=== PATIENT | male | born 1945 | race Caucasian/White ===

== ENCOUNTER 2020-01-17 00:29 | Inpatient (IN) | payer MEDICARE, BC ==
[~2020-01-17] VITALS: Ht 172.7 cm; Wt 97.5 kg
[2020-01-17] MEDS ORDERED: ACETAMINOPHEN ES 500 MG TABLET ONE (00:59)
[2020-01-17] MEDS ORDERED: ACETAMINOPHEN ES 500 MG TABLET PO ONE (01:00)
--- NOTE | 2020-01-17 01:11 | NUR ---
XRAY AT BEDSIDE
--- NOTE | 2020-01-17 01:11 | NUR ---
PATIENT CAME TO ER BED 5 C/O NON PRODUCTIVE COUGH FOR 8 XDAYS. PATIENT HAS A TEMPERATURE OF 100.3 UPON ASSESSMENT. AAOX4. NO SOB. BREATHING EVENLY AND UNLABORED ON 3L N/C. CONNECTED TO MONITOR.
[2020-01-17 01:18] LABS: BASOPHILS % (AUTO) 0.3 % (0.0-2.0); EOSINOPHILS % (AUTO) 0.1 % (0.0-6.0); HEMATOCRIT 30 % (39-51); HEMOGLOBIN 9.7 g/dL (13.5-17.5); LYMPHOCYTES # (AUTO) 0.4 /CMM (0.8-4.8); LYMPHOCYTES % (AUTO) 6.3 % (20.0-44.0); MEAN CORPUSCULAR HGB CONC 33 g/dl (31.0-36.0); MEAN CORPUSCULAR VOLUME 95 fL (80-96); MONOCYTES # (AUTO) 0.4 /CMM (0.1-1.30); MONOCYTES % (AUTO) 6.8 % (2.0-12.0); NEUTROPHILS # (AUTO) 5.7 /CMM (1.8-8.9); NEUTROPHILS % (AUTO) 86.5 % (43.0-81.0); PLATELET COUNT (AUTO) 92 /CMM (150-450); WHITE BLOOD COUNT (AUTO) 6.5 K/uL (4.3-11.0)
[2020-01-17 01:24] LABS: CALCIUM, SERUM 7.7 mg/dL (8.5-10.1); CARBON DIOXIDE 26 mmol/L (21-32); CHLORIDE 85 mmol/L (98-107); GLUCOSE 147 mg/dL (74-106); POTASSIUM 4.7 mmol/L (3.5-5.1); SODIUM SERUM 128 mmol/L (136-145); UREA NITROGEN, BLOOD 75 mg/dL (7-18)
[2020-01-17] MEDS ORDERED: LOSA50TA39 PO (01:26)
[2020-01-17] MEDS ORDERED: INSU100V7 SQ (01:26)
[2020-01-17] MEDS ORDERED: SEVE800T8 PO (01:26)
[2020-01-17] MEDS ORDERED: OMEP40CA13 PO (01:26)
[2020-01-17] MEDS ORDERED: NEBI2.5T5 PO (01:26)
[2020-01-17] MEDS ORDERED: TAMS-12 PO (01:26)
[2020-01-17] MEDS ORDERED: ASPI-1169 PO (01:26)
[2020-01-17] MEDS ORDERED: NIFE-35 PO (01:26)
[2020-01-17] MEDS ORDERED: ALLO100T PO (01:26)
[2020-01-17] MEDS ORDERED: FINA5TAB11 PO (01:26)
[2020-01-17] MEDS ORDERED: GABA-532 PO (01:26)
[2020-01-17] MEDS ORDERED: CINA30TA2 PO (01:26)
[2020-01-17] MEDS ORDERED: ZOLP5TAB2 PO (01:26)
[2020-01-17 01:37] LABS: ALANINE AMINOTRANSFERASE 40 U/L (12-78); ALBUMIN 2.7 g/dL (3.4-5.0); ALKALINE PHOSPHATASE 66 U/L (46-116); ASPARTATE AMINOTRANSFERASE 87 U/L (15-37); BILIRUBIN,TOTAL 0.6 mg/dL (0.2-1.0); CREATININE 12.7 mg/dL (0.6-1.3); TOTAL PROTEIN, SERUM 6.7 g/dL (6.4-8.2)
--- NOTE | 2020-01-17 01:37 | NUR ---
2.4 lactic, creat 12.7
[2020-01-17 02:16] LABS: C-REACTIVE PROTEIN 22.7 mg/dL (0.0-0.9)
[2020-01-17 02:29] LABS: CREATINE KINASE, TOTAL 3901 U/L (39-308); FERRITIN 4437 ng/mL (8-388)
[2020-01-17] MEDS ORDERED: IV NS 0.9% 500 ML IV ONE (02:30)
[2020-01-17 02:37] LABS: LYMPHOCYTES % (MANUAL) 5 % (16-48); MONOCYTES % (MANUAL) 5 % (0-11.0); NEUTROPHILS % (MANUAL) 90 (42-76)
[2020-01-17 03:03] LABS: B-TYPE NATRIURETIC PEPTIDE 81262 PG/ML (0-125)
[2020-01-17] MEDS ORDERED: ACETAMINOPHEN 325 MG TABLET PO PRN (03:30)
[2020-01-17] MEDS ORDERED: HYDROCODONE/APAP 5/325MG 1 EACH TABLET PO PRN (03:30)
[2020-01-17] MEDS ORDERED: ALBUTEROL SULFATE 8 GM HFA.AER.AD IH PRN (03:30)
[2020-01-17] MEDS ORDERED: ONDANSETRON HCL/PF 4 MG/2 ML VIAL IVP PRN (03:30)
[2020-01-17] MEDS ORDERED: FUROSEMIDE 20 MG/2 ML VIAL IV ONE (04:00)
[2020-01-17 04:02] LABS: BILIRUBIN,DIRECT 0.2 mg/dL (0.0-0.2)
--- NOTE | 2020-01-17 05:28 | NUR ---
PATIENT IS WOKEN UP FROM SLEEP. EASILY AROUSED THROUGH TACTILE AND VERBAL STIMULI. PATIENT IS AAOX4. PATIENT IS CHANGED POSITION, MOVED UP HIGHER ON BED. PATIENT IS COMFORTABLE. CALL LIGHT WITHIN REACH.
--- NOTE | 2020-01-17 06:16 | NUR ---
REPORT GIVEN TO MIKA CASTANON FOR GIO.
--- NOTE | 2020-01-17 07:00 | NUR ---
MANAGER BANKING NOTES RECIEVED PT FROM ER VIA [facility] ALERT ORIENTED X4 VERBAL, ON O2 3L SPO2 @ 97%, SAFELY TRANSFER FROM [facility] TO BED, V/S CHECKED BP 135/53 HR 73 RR 18 TEMP 98.2 SPO2 97%, HEAD TO TOE ASSESSMENT DONE NOTED ASYMMETRY OF ABDOMEN PT SAYS IT DUE TO ABDOMINAL HERNIA, PT HAVE AV FISTULA ON MAITE BRUIT CHECKED, ADMISSION ASSESSMENT DONE PUT ON DROPLET ISOLATION R/O COVID PENDING RESULTS PUT ON TELE MONITOR WITH READING SBRADY 50'-60, SAFETY MEASURE INITIATED BED ON LOWEST POSITION AND LOCKED CALL LIGHT WITHIN REACH SIDE RAILS UP WILL ENDORSE TO AM SHIFT NURSE
[2020-01-17] MEDS ORDERED: FEE PK DOSING 1 MIN EA MC ONE (07:26)
[2020-01-17 07:48] VITALS: BP 135/53
[2020-01-17 08:00] VITALS: BP 114/50
[2020-01-17] MEDS ORDERED: VANCOMYCIN 1 GM in IV D5W 250ml IV ONE (09:30)
[2020-01-17 10:46] VITALS: BP 114/50
[2020-01-17] MEDS ORDERED: HYDROXYCHLOROQUINE 200 MG TABLET PO SCH (11:00)
[2020-01-17] MEDS: CEFEPIME 1 GM in IV D5W 50 ML IV SCH (11:57)
[2020-01-17 12:00] VITALS: BP_SYST 114; BP_SYST 149; BP_DIAS 50; BP_DIAS 53
[2020-01-17] MEDS: ASPIRIN 81 MG TAB.CHEW PO SCH (12:01)
[2020-01-17] MEDS: DOXYCYCLINE HYCLATE (100 MG) 100 MG TABLET PO SCH ×2 (12:04→17:16)
[2020-01-17 12:09] LABS: THYROID STIMULATING HORMONE 1.831 uIU/mL (0.358-3.74)
[2020-01-17 12:29] LABS: PHOSPHORUS 5.9 mg/dL (2.5-4.9)
[2020-01-17] MEDS ORDERED: EPOETIN ALFA (10,000 UNIT) 10,000 UNIT/ML VIAL IV ONE (13:00)
[2020-01-17] MEDS: HYDROXYCHLOROQUINE 200 MG TABLET PO SCH ×2 (14:18→21:35)
[2020-01-17] MEDS: GABAPENTIN 100 MG CAPSULE PO SCH ×2 (14:18→17:16)
--- NOTE | 2020-01-17 15:56 | NUR ---
ASH WORKER OPENING NOTES: RECEIVED PATIENT RESETING IN BED. VS STABLE WITH NO RESPIRATORY DISTRESS. BREATHING EVEN AND UNLABORED ON 3L O2 NC. PATIENT IS ALERT AND ORIENTED X4. SB HR 59, TELEMONITOR IN PLACE. PATIENT DENIES PAIN. SKIN IS INTACT WITH A 20G IV ON AMY. IV PATENT, FLUSHING WELL. ALL SAFETY MEASURES IN PLACE. WILL CONTINUE TO MONITOR.
[2020-01-17 16:00] VITALS: BP_SYST 117; BP_SYST 122; BP_DIAS 64; BP_DIAS 65
--- NOTE | 2020-01-17 16:00 | NUR ---
PATIENT TEMPERATURE 104.6. PRN ACETAMINOPHEN 650MG ADMINISTERED, AND JESICA ASKEW INFORMED.
--- NOTE | 2020-01-17 16:30 | NUR ---
PATIENT REASSESSED AND COOLING MEASURES WERE INITIATED; MOTRIN 600 Q8HR SCHEDULED STARTS AT 1700 TO TREAT TEMPERATURE.
--- NOTE | 2020-01-17 17:00 | NUR ---
PATIENT TEMPERATURE REASSESSED; TEMPERATURE 101.3; TEMPERATURE HAS DECREASED; MOTRIN 600 HAS BEEN INITIATED PER JESICA BAPTISTE. COOLING MEASURES ARE IN PLACE. TEMPERATURE MONITORING WILL ENDORSE TO THE INCOMING SHIFT.
[2020-01-17] MEDS: IBUPROFEN 600 MG TABLET PO SCH (17:16)
[2020-01-17] MEDS: SEVELAMER CARBONATE 800 MG TABLET PO SCH ×2 (17:19→21:40)
--- NOTE | 2020-01-17 18:22 | NUR ---
RN CLOSING NOTES DROP PRESS HAND OPENING NOTES PATIENT RESTING IN BED. VS STABLE WITH NO RESPIRATORY DISTRESS. BREATHING EVEN AND UNLABORED ON 3L O2 NC. PATIENT IS ALERT AND ORIENTED X4. SB HR 59, TELEMONITOR IN PLACE. PATIENT DENIES PAIN. SKIN IS INTACT WITH A 20G IV ON AMY. . ALL SAFETY MEASURES IN PLACE. WILL ENDORSE THE INCOMING NURSE WITH TEMPERATURE MONITORING.
[2020-01-17 20:00] VITALS: BP 118/60
[2020-01-17] MEDS: HEPARIN SODIUM, PORCINE 5000 UNITS/1 ML VIAL SQ SCH (21:36)
[2020-01-17] MEDS ORDERED: ZOLPIDEM TARTRATE 5 MG TABLET PO SCH (22:00)
[2020-01-18] VITALS: BP 117/55
[2020-01-18 04:00] VITALS: BP 107/65
[2020-01-18] MEDS: IBUPROFEN 600 MG TABLET PO SCH (04:27)
[2020-01-18 07:05] LABS: BASOPHILS % (AUTO) 0.3 % (0.0-2.0); EOSINOPHILS % (AUTO) 3.3 % (0.0-6.0); HEMATOCRIT 34 % (39-51); HEMOGLOBIN 11.1 g/dL (13.5-17.5); LYMPHOCYTES # (AUTO) 0.3 /CMM (0.8-4.8); LYMPHOCYTES % (AUTO) 3.3 % (20.0-44.0); MEAN CORPUSCULAR HGB CONC 33 g/dl (31.0-36.0); MEAN CORPUSCULAR VOLUME 94 fL (80-96); MONOCYTES # (AUTO) 0.2 /CMM (0.1-1.30); NEUTROPHILS # (AUTO) 9.6 /CMM (1.8-8.9); NEUTROPHILS % (AUTO) 91.1 % (43.0-81.0); PLATELET COUNT (AUTO) 133 /CMM (150-450); RED BLOOD CELL COUNT(AUTO) 3.57 MIL/uL (4.5-6.0); WHITE BLOOD COUNT (AUTO) 10.5 K/uL (4.3-11.0)
[2020-01-18 07:19] LABS: CARBON DIOXIDE 26 mmol/L (21-32); CHLORIDE 93 mmol/L (98-107); GLUCOSE 134 mg/dL (74-106); POTASSIUM 4.6 mmol/L (3.5-5.1); SODIUM SERUM 135 mmol/L (136-145); UREA NITROGEN, BLOOD 74 mg/dL (7-18)
[2020-01-18 07:28] LABS: ALANINE AMINOTRANSFERASE 45 U/L (12-78); ALBUMIN 2.7 g/dL (3.4-5.0); ALKALINE PHOSPHATASE 75 U/L (46-116); ASPARTATE AMINOTRANSFERASE 90 U/L (15-37); BILIRUBIN,TOTAL 0.6 mg/dL (0.2-1.0); MAGNESIUM 1.9 mg/dL (1.8-2.4); PHOSPHORUS 6.6 mg/dL (2.5-4.9); TOTAL PROTEIN, SERUM 7.2 g/dL (6.4-8.2)
[2020-01-18] MEDS ORDERED: VANCOMYCIN POST DIALYSIS 500MG IV PRN ×2 (07:30)
[2020-01-18] MEDS ORDERED: PANTOPRAZOLE 40 MG TABLET.DR PO SCH (07:30)
--- NOTE | 2020-01-18 07:30 | NUR ---
TELE/RN NOTE THE PATIENT IS RECEIVED IN BED. PATIENT IS ALERT AND ORIENTED X4. DENIES PAIN. THE PATIENT IS RECEIVING OXYGEN AT 2L/MIN VIA NASAL CANNULA AND SATURATION IS AT 90%. DENIES SOB. RESPIRATION REGULAR AND UNLABORED. EXTERNL TELE BOX READING IS NORMAL SINUS 84. THE PATIENT`S LAC IV LINE PATENT AND SLAINE LOCKED. NOTED MAITE AV FISTULA WITH NO BLEEDING OR APPARENT COMPLICATIONS. BED LOW AND LOCKED. SIDE RAILS UP X3. CALL LIGHT WITHIN REACH. WILL CONTINUE TO MONITOR.
[2020-01-18 07:32] LABS: CREATININE 11.7 mg/dL (0.6-1.3)
[2020-01-18 07:51] LABS: BAND % (MANUAL) 4 % (0.0-5.0); LYMPHOCYTES % (MANUAL) 4 % (16-48); MONOCYTES % (MANUAL) 2 % (0-11.0); NEUTROPHILS % (MANUAL) 90 (42-76)
[2020-01-18 07:52] LABS: FERRITIN 8095 ng/mL (8-388)
[2020-01-18 08:00] VITALS: BP 86/50
[2020-01-18 08:20] LABS: B-TYPE NATRIURETIC PEPTIDE 72637 PG/ML (0-125)
[2020-01-18 08:21] LABS: C-REACTIVE PROTEIN 41.9 mg/dL (0.0-0.9)
[2020-01-18] MEDS: DOXYCYCLINE HYCLATE (100 MG) 100 MG TABLET PO SCH (08:59)
[2020-01-18] MEDS: HYDROXYCHLOROQUINE 200 MG TABLET PO SCH ×2 (08:59→09:00)
[2020-01-18] MEDS: SEVELAMER CARBONATE 800 MG TABLET PO SCH ×2 (08:59→09:00)
[2020-01-18] MEDS ORDERED: TAMSULOSIN 0.4 MG CAP.SR.24H PO SCH (09:00)
[2020-01-18] MEDS: GABAPENTIN 100 MG CAPSULE PO SCH (09:00)
[2020-01-18] MEDS: ASPIRIN 81 MG TAB.CHEW PO SCH (09:00)
[2020-01-18] MEDS ORDERED: ASPIRIN 81 MG TAB.CHEW PO SCH (09:00)
[2020-01-18] MEDS ORDERED: ALLOPURINOL 100 MG TABLET PO SCH (09:00)
[2020-01-18] MEDS ORDERED: CINACALCET HCL 30 MG TABLET PO SCH (09:00)
[2020-01-18] MEDS ORDERED: INSULIN GLARGINE, 100 UNIT/ML CARTRIDGE SQ SCH (09:00)
[2020-01-18] MEDS ORDERED: FINASTERIDE (5 MG) 5 MG TABLET PO SCH (09:00)
[2020-01-18] MEDS: HEPARIN SODIUM, PORCINE 5000 UNITS/1 ML VIAL SQ SCH (09:01)
[2020-01-18] MEDS: CEFEPIME 1 GM in IV D5W 50 ML IV SCH (09:09)
[2020-01-18] MEDS ORDERED: methylPREDNISolone SOD SUCC 40 MG/ML VIAL IV SCH (09:30)
--- NOTE | 2020-01-18 09:55 | NUR ---
TELE/RN NOTE DR BASSETT IS MADE AWARE THAT THE PATIENT IS RECEIVING OXYGEN AT 2L/MIN AND SATURATION IS AT 90%. THE PATIENT DENIES SOB. RESPIRATION REGULAR AND UNLABORED. PER DR BASSETT INCREASE OXYGEN LEVEL TO 4L/MIN VIA NASAL CANNULA TO INPORVE SATURATION LEVEL.
[2020-01-18 10:00] VITALS: BP 91/56
--- NOTE | 2020-01-18 10:00 | NUR ---
TELE/RN NOTE PATIENT RECEIVING OXYGEN 4L/MIN VIA NASAL CANNULA AND SATURATION LEVEL IS AT 93%.
--- NOTE | 2020-01-18 10:13 | NUR ---
TELE/RN NOTE PATIENT REFUSED PLAQUENIL. RENVELA AND SOLU-MEDROL DUE IN THE MORNING DESPITE EXPLAINING RISKS AND BENEFITS MULTIPLE TIMES. Addendum: 01/18/20 at 1016 by PAYTON HUIZAR RN TELE/RN NOTE PLAQUENIL. RENVELA DID NOT RETURN TO THE [facility] BECAUSE THE MEDICATION WAS IN THE PATIENT`S ROOM WHO IS POSITIVE FOR COVID-19. INSTEAD THE MEDICATIONS WERE DISCARDED AND WITNESSED BY LG GOMEZ.
--- NOTE | 2020-01-18 11:03 | NUR ---
TELE/RN NOTE BLOOR PRESSURE 91/56M PULSE 78. DR BIRD AWARE. PATIENT AMA-ING. DENIES ANY DISTRESS.
--- NOTE | 2020-01-18 11:05 | NUR ---
TELE/RN NOTE THE PATIENT IS ALERT AND ORIENTED X4. THE PATIENT LEFT AMA DESPITE EXPLAINING RISKS OF LEAVING AMA AND BENEFITS OF FOLLOWING DOCTOR`S ORDERS. HOWEVER. THE PATIENT INSISTED AND THE PICKED HIM UP VIA PRIVATE CAR. THE PATIENT HAD BEEN ON OXYGEN AT 4L/MIN TO MAINTAIN OXYGEN SATURATION LEVEL 93% AND THE PATIENT LEFT THE HOSPITAL WITHOUT OXYGEN. PATIENT SATURATION IN ROOM AIR AT 89-90%. DR BIRD IS AWARE, CHARGE NURSE AND CAR ESCORT ARE AWARE THAT THE PATIENT IS GOING WITHOUT OXYGEN. THE PATIENT DENIED SOB DESPITE BEING OFF OXYGEN AND SATURATION IN ROOM AIR AT THE TIME BEING 90%. RESPIRATION REGULAR AND UNLABORED. THE PATIENT STATED " I FEEL FINE. MY AND I HAVE A PLAN, I AM GOING TO GO TO HOSPITAL IF EVER I FEEL BAD." THE PATIENT DENIED PAIN.IV LINE REMOVED FROM LAC WITH NO BLEEDING FROM THE SITE. MAITE AV FISTULA WITH NO BLEEDING OR ANY OTHER NOTABLE COMPLICATION. THE PATIENT LEFT THE HOSPITAL WITH AND STABLE CONDITION.
--- NOTE | 2020-01-18 11:57 | NUR ---
TELE/RN NOTE THE PATIENT REQUESTED TO LEAVE AMA. DR PELON GARCIA AND THE PATIENT SIGNED AMA PAPER DESPITE RISKS AND BENEFITS WERE EXPLAINED TO THE PATIENT. Addendum: 01/18/20 at 1202 by PAYTON HUIZAR RN TELE/RN NOTE CORRECTION ON TIME, THE ABOVE NOTE IS FOR 01/18/20 1040.
--- NOTE | 2020-01-18 12:00 | NUR ---
infection Control Public health made aware of patient leaving AMA to home with his . per they only follow up with homeless patients leaving AMA.
== END 2020-01-18 11:09 | disposition left against medical advice (07) | DRG 177 ==
LOC: ER 00:47 → TELE-TD 06:42 → TELE1 06:47
PROVIDERS: ADMIT Registered Nurse; ATTEND Family Medicine
PROC: 5A1D70Z Performance of Urinary Filtration, Intermittent, Less than 6 Hours Per Day (ICD-10-PCS; principal; 2020-01-17)
DX: U07.1 COVID-19 (principal); J12.89 Other viral pneumonia; N18.6 End stage renal disease; J96.01 Acute respiratory failure with hypoxia; I21.A1 Myocardial infarction type 2; J15.9 Unspecified bacterial pneumonia; G93.41 Metabolic encephalopathy; I12.0 Hypertensive chronic kidney disease with stage 5 chronic kidney disease or end stage renal disease; E87.2 Acidosis; E87.1 Hypo-osmolality and hyponatremia; E78.5 Hyperlipidemia, unspecified; I25.10 Atherosclerotic heart disease of native coronary artery without angina pectoris; Z99.2 Dependence on renal dialysis; E11.22 Type 2 diabetes mellitus with diabetic chronic kidney disease; D63.1 Anemia in chronic kidney disease; D69.6 Thrombocytopenia, unspecified; R74.0 Nonspecific elevation of levels of transaminase and lactic acid dehydrogenase [LDH]; N40.0 Benign prostatic hyperplasia without lower urinary tract symptoms; E66.8 Other obesity; R79.89 Other specified abnormal findings of blood chemistry; E11.65 Type 2 diabetes mellitus with hyperglycemia; E86.1 Hypovolemia; Z68.32 Body mass index [BMI] 32.0-32.9, adult; M89.8X9 Other specified disorders of bone, unspecified site
CPT/HCPCS: 36415; 71045-TC; 80053-TC; 82248-TC; 82550-TC; 82553; 82728-TC; 82962-TC; 83540-TC; 83605-TC; 83615-TC; 83735-TC; 83880; 84100-TC; 84439-TC; 84443-TC; 84484-TC; 85025-TC; 85378-TC; 85652-TC; 86140-TC; 86706; 86803; 87040-TC; 87081-TC; 87340; 87806; 87899; 90935-TC; G0378; J0692; J0885; J1644; J1815; J3370; J7050; J7060